=== PATIENT | female | born 1975 | race Hispanic/Latino ===

== ENCOUNTER 2018-02-04 08:07 | Day surgery (SDC) | payer BC ==
[2018-02-04] MEDS ORDERED: NACL BACTERIOSTATIC INFILTRATI ONE (09:08)
[2018-02-04 09:56] VITALS: BP 100/71
[2018-02-04] MEDS ORDERED: ANCEF/STERILE WATER 2 GM/20 ML IV NR (10:00)
[2018-02-04] MEDS ORDERED: VERSED IV NR (10:21)
[2018-02-04] MEDS ORDERED: NACL 0.9% 1000 ML 1,000 ML IV SCH (10:21)
--- NOTE | 2018-02-04 10:30 | Anesthesia Day of Surgery ---
Anesthesia Day of Surgery - Day of Surgery Patient Examined: Yes Patient H&P Reviewed: Yes Patient is NPO: Yes
[2018-02-04] MEDS ORDERED: DILAUDID IV PRN (10:32)
[2018-02-04] MEDS ORDERED: ZOFRAN IV PRN (10:32)
--- NOTE | 2018-02-04 10:32 | Anesthesia Consultation ---
Anesthesia Consult and Med Hx Date of service: 02/04/18 - Airway Anesthetic Teeth Evaluation: Good ROM Head & Neck: Adequate Mental/Hyoid Distance: Adequate Mallampati Class: Class III (chronic pancreatitis) Intubation Access Assessment: Probably Good - Pulmonary Exam CTA: Yes - Cardiac Exam Cardiac Exam: RRR - Pre-Operative Health Status ASA Pre-Surgery Classification: ASA3 Proposed Anesthetic Plan: General - Pulmonary Hx Smoking: Yes (STOPPED X 2 MONTHS , 1 PPD X 24 YRS currently Vapes.) Hx Sleep Apnea: No (JON PRE SCREEN NEGATIVE) - Cardiovascular System Hx Hypertension: No - Hematic Hx Anemia: Yes - Other Systems Hx Cancer: No
[2018-02-04] MEDS ORDERED: LACTATED RINGERS 1,000 ML IV SCH (11:00)
[2018-02-04] MEDS ORDERED: MARCAINE 0.5% 0 ML INFILTRATI ONE (11:38)
[2018-02-04] MEDS ORDERED: XYLOCAINE 1%/ EPI 1:100,000 INFILTRATI ONE ×2 (11:38→11:39)
[2018-02-04] MEDS ORDERED: BACITRACIN ONE (11:39)
[2018-02-04] MEDS ORDERED: NACL P/F VIAL (10 ML) 0 ML ONE (11:40)
== END 2018-02-04 08:08 | disposition home or self-care (01) ==
LOC: OR 08:07
PROVIDERS: ATTEND Radiology Diagnostic Radiology
DX: M54.5 Low back pain (principal); Z53.8 Procedure and treatment not carried out for other reasons; Z87.891 Personal history of nicotine dependence
CPT/HCPCS: J2250; J7030; J0690

== ENCOUNTER 2018-02-25 06:15 | Day surgery (SDC) | payer BC ==
[~2018-02-25 06:15] MED LIST: ANCEF/STERILE WATER 2 GM/20 ML IV NR
[2018-02-25] MEDS ORDERED: NACL BACTERIOSTATIC INFILTRATI ONE (06:28)
[2018-02-25 07:14] LABS: Basophils % (Auto) 0.6 % (0.0-1.8); Eosinophils # (Auto) 0.1 K/mm3 (0.0-0.4); Eosinophils % (Auto) 1.5 % (0.0-4.3); Hematocrit 42.8 % (30.3-42.9); Hemoglobin 14.7 gm/dl (10.1-14.3); Lymphocytes # (Auto) 1.4 K/mm3 (1.2-5.4); Lymphocytes % (Auto) 25.5 % (13.4-35.0); Mean Corpuscular HGB Conc 34 % (30-34); Mean Corpuscular Hemoglobin 34 pg (28-32); Mean Corpuscular Volume 98 fl (79-97); Monocytes # (Auto) 0.4 K/mm3 (0.0-0.8); Monocytes % (Auto) 7.1 % (0.0-7.3); Platelet Count 161 K/mm3 (140-440); Red Blood Count 4.35 M/mm3 (3.65-5.03); Red Cell Distribution Width 13.6 % (13.2-15.2)
[2018-02-25 07:27] LABS: BUN/Creatinine Ratio 9; Blood Urea Nitrogen 6 mg/dL (7-17); Hemolysis Index 5
[2018-02-25] MEDS ORDERED: VERSED ONE ×2 (07:27→07:35)
--- NOTE | 2018-02-25 07:28 | Anesthesia Consultation ---
Anesthesia Consult and Med Hx - Pulmonary Hx Smoking: Yes (STOPPED X 3 MONTHS , 1 PPD X 24 YRS currently Vapes.) Hx Sleep Apnea: No (JON PRE SCREEN NEGATIVE) - Cardiovascular System Hx Hypertension: No - Hematic Hx Anemia: Yes - Other Systems Hx Cancer: No
[2018-02-25] MEDS ORDERED: SUBLIMAZE ONE ×2 (07:35→10:03)
[2018-02-25] MEDS ORDERED: XYLOCAINE MPF 2% ONE (07:35)
[2018-02-25] MEDS ORDERED: DIPRIVAN 10 MG/ML IV ONE (07:35)
[2018-02-25] MEDS ORDERED: BACITRACIN ONE (07:48)
[2018-02-25] MEDS ORDERED: XYLOCAINE 1% 20 mL ONE (07:49)
[2018-02-25] MEDS ORDERED: MARCAINE 0.5% 30 ML INFILTRATI ONE (07:49)
[2018-02-25] MEDS ORDERED: TRIPLE ANTIBIOTIC TP ONE (07:51)
[2018-02-25] MEDS ORDERED: ANTIBIOTIC OINT TP ONE ×2 (07:51→11:07)
[2018-02-25] MEDS ORDERED: QUELICIN ONE (07:55)
[2018-02-25] MEDS ORDERED: LACTATED RINGERS 1,000 ML IV SCH (08:00)
[2018-02-25] MEDS ORDERED: DEXMEDETOMIDINE IV ONE (08:06)
[2018-02-25] MEDS ORDERED: NACL 0.9% 100 ML ONE (08:06)
[2018-02-25] MEDS ORDERED: KETALAR ONE (08:08)
[2018-02-25] MEDS ORDERED: ZEMURON IV ONE (08:25)
[2018-02-25] MEDS ORDERED: XYLOCAINE 1% 20 mL INFILTRATI ONE (08:45)
[2018-02-25] MEDS ORDERED: BACITRACIN IR ONE (08:45)
[2018-02-25] MEDS ORDERED: MARCAINE 0.5% INFILTRATI ONE (08:45)
[2018-02-25] MEDS ORDERED: NACL P/F VIAL (10 ML) INFILTRATI ONE (08:46)
[2018-02-25] MEDS ORDERED: ZOFRAN ONE (10:25)
[2018-02-25] MEDS ORDERED: TORADOL ONE (10:25)
[2018-02-25] MEDS ORDERED: DECADRON ONE (10:25)
[2018-02-25] MEDS ORDERED: ROBINUL ONE (10:30)
[2018-02-25] MEDS ORDERED: DILAUDID ONE (11:00)
--- NOTE | 2018-02-25 12:47 | Short Stay Summary ---
Short Stay Documentation Date of service: 02/25/18 Narrative H&P: 42 year old female with Chronic Abdominal Neuropathic Pain Syndrome secondary to chronic pancreatitis. She has undergone numerous celiac plexus blocks with temporary pain relief. She underwent neurostimulator trial in Sep 2017 with 70 % improvement in abdominal pain. She now presents for permanent neurostimulator implantation. - History H&P: obtained from office Past Medical History: hepatitis (Hepatitis C), other (Chronic Pancreatitis) Social history: , full code - Allergies and Medications Current Medications: Allergies No Known Allergies Allergy (Verified 01/25/18 17:50) Home Medications Medication Instructions Recorded Confirmed Last Taken Type Ondansetron [Zofran TAB] 4 mg PO Q8HR PRN 01/25/18 02/25/18 02/18/18 History Oxycodone HCl [Roxicodone TAB] 15 mg PO TID 01/25/18 02/09/18 02/24/18 History Oxycodone Myristate [Xtampza ER] 18 mg PO BID 01/25/18 02/09/18 02/24/18 History Tizanidine HCl [Zanaflex] 4 mg PO QHS 01/25/18 02/09/18 02/24/18 History Varenicline Tartrate [Chantix] 1 mg PO BID 01/25/18 02/09/18 02/24/18 History Active Medications Cefazolin Sodium (Ancef/Sterile Water 2 Gm/20 Ml) 2 gm IV PREOP NR Stop: 02/25/18 23:59 Lactated Ringer's (Lactated Ringers) 1,000 mls @ 75 mls/hr IV DIRECT CHARITO Last Admin: 02/25/18 07:28 Dose: 75 mls/hr - Physical exam General appearance: no acute distress, well-nourished Integumentary: no rash HEENT: Atraumatic, PERRLA, EOMI Lungs: Clear to auscultation Breasts: deferred Heart: Regular rate, No murmurs Gastrointestinal: tenderness Female Genitourinary: deferred Rectal Exam: deferred Extremities: no ischemia, No edema, Full ROM Neurological: Normal gait, Strength at 5/5 X4 ext, Normal tone, Sensation intact , Cranial nerves 3-12 NL, Reflexes 2+ - Brief post op/procedure progress note Date of procedure: 02/25/18 Pre-op diagnosis: Chronic Abdominal Neuropathic Pain Syndrome Post-op diagnosis: same Procedure: Permanent Neurostimulator Implantation with Dual Thoracic Leads Anesthesia: GETA Findings: Bilateral thoracic T9 leads Surgeon: ALFREDO BROWN Pathology: none - Hospital course Hospital course: Patient had unremarkable post operative course. Pain well controlled. Discharged in good condition. - Disposition Condition at discharge: Good Disposition: DC-01 TO HOME OR SELFCARE Short Stay Discharge Plan Activity: advance as tolerated Weight Bearing Status: Full Weight Bearing Diet: regular Wound: per your surgeon's advice (May shower in 3 days; Avoid direct water directed at incisions. Change dressing after each shower. Apply antibiotic ointment to staple line.) Follow up with: GINA ARANDA [Other] - 7 Days
--- NOTE | 2018-02-25 13:56 | XRay Report ---
THORACIC SPINE, 2 VIEWS: HISTORY: Neurostimulator insertion, chronic pancreatitis. 2 fluoroscopic images of the lower thoracic spine are presented during surgery. The images demonstrate placement of a dorsal neurostimulator device which terminates near the level of T9. Please correlate with the procedural report as needed. IMPRESSION: Neurostimulator placement as described.
[2018-02-25] MEDS ORDERED: ATIVAN IV ONE (14:30)
[2018-02-25] MEDS ORDERED: NORCO 5/325 PO SCH (14:51)
--- NOTE | 2018-02-25 19:24 | Anesthesia Day of Surgery ---
Anesthesia Day of Surgery - Day of Surgery Patient Examined: Yes Patient H&P Reviewed: Yes Patient is NPO: Yes
--- NOTE | 2018-02-25 19:25 | Post Anesthesia Evaluation ---
- Post Anesthesia Evaluation Patient Participated: Yes Airway Patent: Yes Stable Respiratory Function: Yes Nausea/Vomiting: No Temp > 96.8F: Yes Pain Manageable: Yes Adequeate Hydration: Yes Anesthesia Complications: No Block Receding Appropriately: Not Applicable Patient on Ventilator: No
[2018-02-25 19:28] VITALS: BP 112/70
--- NOTE | 2018-03-19 15:57 | Operative Report ---
Operative Report Operative Report: PREOPERATIVE DIAGNOSIS: 1. Chronic Abdominal Neuropathic Pain Syndrome. 2. Chronic Pancreatitis. 3. Chronic bilateral T9 radiculopathy. POSTOPERATIVE DIAGNOSIS: 1. Chronic Abdominal Neuropathic Pain Syndrome. 2. Chronic Pancreatitis. 3. Chronic bilateral T9 radiculopathy. PROCEDURE PERFORMED: 1. Percutaneous placement of quad contact spinal cord stimulator/dorsal root ganglion lead at right T9. 2. Percutaneous placement of quad contact spinal cord stimulator/dorsal root ganglion lead at left T9. 3. Implantation of permanent neurostimulator generator/social worker assistant. 3. Post implantation programming for trial neuromodulation [id number] minutes SURGEON: ALFREDO BROWN M.D. ANESTHESIA: GETA, 1% lidocaine local EBL: 20 mL. COMP: None. DESCRIPTION OF PROCEDURE: Pt was brought to the operating room and was placed in the prone position. GETA was induced without complication. The patient received 2 gm Ancef IV. The patient was then prepped and draped in the usual sterile fashion with Duraprep. With fluoroscopic guidance the location of the desired site for placement of the percutaneous leads was identified and local anesthetic consisting of 1 % Lidocaine with epinephrine was injected subcutaneously over the area. A left para-median, antegrade approach using a 14G Tuohy needle from the pedicle at T11 aiming the tip of the needle to midline of the interlaminar window of the T9-10. The needle tip was also directed to aim towards the right T9-10 foramen. Then loss of resistance technique was used to enter the dorsal epidural space using a flexible guide wire. The guidewire was then loaded onto a prepacked sheath which was reintroduced through the needle. The sheath and the guide wire was advanced towards the superior part of the T9-10 foramen, under the right T9 pedicle where the T9 dorsal root ganglion is located. The guidewire was introduced about 2 cm outside the foramen to make sure the path was free of any obstruction. No resistance was encountered. The guidewire was taken out of the sheath and the quad contact electrode lead was introduced in the same path, and placed under the T9 pedicle on right side. The lead was introduced so far, as to have at least 2 contacts placed under the right pedicle, between the medial and lateral borders of the pedicle. Once the correct placement of the lead was confirmed by repeated fluoroscopic images in AP and lateral to ensure dorsal placement and the sheath was withdrawn to the tip of the needle making sure the lead did not migrate during the withdrawal. Holding the sheath in place, the lead in the posterior epidural space was advanced in such a way as to keep the contacts in stable placement, however to create a superior loop of the lead above the level of the foramen to the level of the disc space above. A similar loop was created then created inferiorly, to provide the stability of the lead in a figure of eight configuration, to prevent any lead migration. A second 4 contact lead was advanced from from a right paramedian approach in a similar fashion at the level below left T9 pedicle for the placement within the left T9-10 foramen, below the pedicle to target the left T9 dorsal root ganglion. The lead was visualized in both the AP and lateral projections to ensure satisfactory placement. Intracanal loop placement was then performed as noted above. Dual 3 cm bilateral paramedian skin incisions was made with a #15 blade. Dissection was carried down to the dorsal thoracolumbar fascia. The needles were removed taking care to avoid displacement of the bilateral leads at T9. Silastic anchors were then placed over the leads and anchored to the fascia. hemostasis was maintained with electrocautery. The incisions was copiously irrigated. Attention was next turned to the right costophrenic angle. A second longitudinal 4 cm incision was made with a #15 blade. Electrocautery was used for hemostasis. The tissues were bluntly dissected and a pocket was created within the subcutaneous adipose tissue for placement of the pulse generator/ social worker assistant and both leads were then tunneled to the pocket. The leads were secured to a neurostimulator generator/social worker assistant. Impedance was checked and found a satisfactory. The IPG was then placed within the surgically created pocket after the leads were well secured. The pocket was copiously irrigated with antibiotic-containing solution. The left and right paramedian incisions was closed in 3 layers with deep 2-0 Vicryl sutures, subcutaneous 3-0 Vicryl sutures and the skin edges were closed with a running 3-0 proline subcutaneous sutures. The incision overlying the IPG was closed in 3 layers with 0 Vicryl deep sutures, 3-0 Vicryl subcutaneous sutures and the skin was closed with stainless steel jolie. Sterile dressings were applied. Images were taken to confirm position the AP and lateral projection and found to be satisfactory. Approximately 30 minutes was spent for complex electronic stimulator analysis was performed by the [employer] neuromodulation clinical specialist under direct supervision using varying frequency, pulse amplitude, pulse duration and pulse width combinations. Impedance was found to be satisfactory. CONDITION AT DISCHARGE: Good. FOLLOW-UP: In Office in 10 days.
== END 2018-02-25 17:25 | disposition home or self-care (01) ==
LOC: OR 06:15
PROVIDERS: ATTEND Radiology Diagnostic Radiology
DX: M54.14 Radiculopathy, thoracic region (principal); K86.1 Other chronic pancreatitis; G89.4 Chronic pain syndrome; F17.290 Nicotine dependence, other tobacco product, uncomplicated; Z90.710 Acquired absence of both cervix and uterus; Z98.891 History of uterine scar from previous surgery; Z86.19 Personal history of other infectious and parasitic diseases; Z98.890 Other specified postprocedural states
CPT/HCPCS: 36415; 63650; 63685; 72070; 80048; 85025; 95972; C1767; C1778; J0330; J0690; J1100; J1885; J2060; J2250; J2405; J2704; J3010; J7120; A6250; J1170